=== PATIENT | male | born 1955 | race Caucasian/White ===

== ENCOUNTER → 2023-12-07 | Outpatient (BNVA) | payer MEDICARE, BC, SELFPAY | END | disposition home or self-care (01) | PROVIDERS: PCP Family Medicine; Referring Provider Family Medicine; Visit Provider Urology | DX: N40.1 Benign prostatic hyperplasia with lower urinary tract symptoms (principal); N13.8 Other obstructive and reflux uropathy | CPT/HCPCS: 76872; 81003 ==

== ENCOUNTER → 2024-07-09 | Outpatient (CLI) | payer MEDICARE, BC, SELFPAY ==
--- NOTE | 2024-07-09 | XR_ITS ---
Examination:Right hip AP, lateral, AP pelvis 3 views Technique: Hip AP lateral, AP pelvis, 3 views Exam date and time:July 09, 2024 0908 hours INDICATIONS: Right hip pain beginning 18 months ago FINDINGS: Total right hip arthroplasty. No prosthetic hip dislocation or loosening of the prosthetic components Advanced left hip osteoarthritis Bones of the pelvis intact IMPRESSION: Total right hip arthroplasty with satisfactory alignment.
[2024-07-09 10:04] LABS: C-Reactive Protein 1.3 mg/dL (0.0-0.9)
[2024-07-09 13:03] LABS: Sed Rate (ESR) 16 mm/hr (0-20)
== END | disposition home or self-care (01) ==
LOC: CDIM 07:46 → COPL 08:40
PROVIDERS: PCP Family Medicine; Referring Provider Orthopaedic Surgery Adult Reconstructive Orthopaedic Surgery; Visit Provider Radiology Diagnostic Radiology
DX: Z96.641 Presence of right artificial hip joint (principal)
CPT/HCPCS: 36415; 73502; 85652; 86140

== ENCOUNTER → 2024-07-14 | Outpatient (CLI) | payer MEDICARE, BC, SELFPAY ==
--- NOTE | 2024-07-14 | XR_ITS ---
Examination: CT right lower extremity without intravenous contrast, 2-D sagittal reconstructions. 2-D coronal reconstructions. 3-D reconstructions. Date and time of exam:#9 4 1637 hrs. Indications: Right hip pain for years, continues after surgery 4 years ago CTDI: vol (mGy):13.1 DLP: (mGycm):998 Technique: Multiple 1.25 mm axial sections of the right lower extremity without intravenous contrast have been obtained. 2-D sagittal and coronal reconstructions have been obtained. 3-D reconstructions have been obtained. Low dose protocols were performed. One or more of the following dose reduction techniques were used; automated exposure control, adjustment of the mA and/or KV according to patient size, use of iterative reconstruction technique. Findings: Total right hip arthroplasty Satisfactory alignment No prosthetic hip dislocation No fracture There is mild radiolucency, 2 mm involving the posterior medial prosthetic acetabular cup Advanced left hip joint narrowing Moderate narrowing medial lateral and patellofemoral joints right knee Subluxation, chronic patella at least 14 mm Total left knee arthroplasty with satisfactory alignment Impression: Total right hip arthroplasty with satisfactory alignment There is mild radiolucency, 2 mm between the prosthetic acetabular cup in the acetabulum Consider 3 phase radioisotope bone scan to assess for prosthetic right hip loosening as clinically warranted Moderate tricompartment narrowing right knee joint
== END | disposition home or self-care (01) ==
LOC: CCTX 16:06
PROVIDERS: PCP Orthopaedic Surgery Adult Reconstructive Orthopaedic Surgery; Referring Provider Orthopaedic Surgery Adult Reconstructive Orthopaedic Surgery; Visit Provider Orthopaedic Surgery Adult Reconstructive Orthopaedic Surgery
DX: M25.861 Other specified joint disorders, right knee (principal); M25.551 Pain in right hip; Z96.641 Presence of right artificial hip joint
CPT/HCPCS: 73700

== ENCOUNTER → 2024-07-15 | Outpatient (CLI) | payer MEDICARE, BC, SELFPAY ==
[2024-07-15 10:39] LABS: Prostate Specific Antigen 1.08 ng/mL (0-4.00)
[2024-07-15 10:58] LABS: Alanine Aminotransferase 9 U/L (10-49); Albumin, Serum 3.8 gm/dL (3.4-4.8); Albumin/Globulin Ratio 1.7 (1.2-2.2); Alkaline Phosphatase 119 U/L (46-116); Anion Gap 8 (7-16); Aspartate Amino Transferase 13 U/L (0-34); BUN/Creatinine Ratio 17 Ratio (12-20); Bilirubin,Total 0.5 mg/dL (0.3-1.2); Blood Urea Nitrogen 17 mg/dL (9-23); Calcium 8.8 mg/dL (8.3-10.6); Carbon Dioxide 28.4 mMol/L (20.0-31.0); Chloride 104 mMol/L (98-107); Globulin 2.3 gm/dL (2.3-3.5); Glucose 88 mg/dL (74-106); Osmolality,Calculated 279 (275-295); Potassium 3.7 mMol/L (3.4-5.1); Sodium 140 mMol/L (136-145); Total Protein 6.1 gm/dL (5.7-8.2); eGFR > 60 See Note
== END | disposition home or self-care (01) ==
LOC: COPL 09:08
PROVIDERS: PCP Family Medicine; Referring Provider Urology; Visit Provider Urology
DX: N40.1 Benign prostatic hyperplasia with lower urinary tract symptoms (principal)
CPT/HCPCS: 36415; 80053; 84153

== ENCOUNTER → 2024-07-21 | Outpatient (BNVA) | payer MEDICARE, BC, SELFPAY | END | disposition home or self-care (01) | PROVIDERS: PCP Family Medicine; Referring Provider Family Medicine; Visit Provider Urology | DX: N40.1 Benign prostatic hyperplasia with lower urinary tract symptoms (principal); N13.8 Other obstructive and reflux uropathy; R31.0 Gross hematuria; I10 Essential (primary) hypertension; I25.10 Atherosclerotic heart disease of native coronary artery without angina pectoris; E78.00 Pure hypercholesterolemia, unspecified | CPT/HCPCS: 81003; 99211; G0463 ==

== ENCOUNTER 2024-08-05 09:33 | Outpatient (AMB) | payer MEDICARE, BC, SELFPAY ==
[2024-08-05 10:41] VITALS: BP 123/77; PULSE 64; RESP 19; TEMP 36; O2SAT 97; BMI 29.7
--- NOTE | 2024-08-05 10:41 | PD.ORTHCLVIS ---
Vital signs 08/05/24 10:41 Height 1.88 m Height Method Stated Weight 105.318 kg Weight Measurement Method Standing Scale BMI 29.7 BP 123/77 Blood Pressure Source Automatic Cuff Blood Pressure Location Left Upper Arm Position Sitting Respiration 19 Pulse 64 Pulse Source Monitor Temp 96.8 F Temp Source Temporal Artery Scan Pulse Oximetry (%) 97 Oxygen Delivery Method Room Air Med/Allergies Allergies & Medications Allergies aspirin Allergy (Severe, Verified 08/05/24 10:42) swelling Medication Reconciliation atorvastatin 40 mg tablet (Lipitor) 40 mg PO HS High Cholesterol #0 tabs 11/14/15 [History Confirmed 08/05/24] propafenone 225 mg capsule,extended release 12 hr (Rythmol SR) 225 mg PO Q12HR Heart #0 caps 11/14/15 [History Confirmed 08/05/24] ramipril 5 mg capsule (Altace) 5 mg PO QDAY High Blood Pressure #0 caps 11/14/15 [History Confirmed 08/05/24] rivaroxaban 15 mg tablet (Xarelto) 15 mg PO QDAY Blood Thinner #0 tabs 11/14/15 [History Confirmed 08/05/24] tamsulosin 0.4 mg capsule (Flomax) 0.4 mg PO HS Prostate ##0 11/14/15 [History Confirmed 08/05/24] allopurinol 300 mg tablet 300 mg PO QDAY 09/05/21 [History Confirmed 08/05/24] meloxicam 7.5 mg tablet 7.5 mg PO QDAY PRN Pain 09/05/21 [History Confirmed 08/05/24] carvedilol 6.25 mg tablet 6.25 mg PO BID 10/27/22 [History Confirmed 08/05/24] cilostazol 50 mg tablet 50 mg PO BID 10/27/22 [History Confirmed 08/05/24] hydrochlorothiazide 12.5 mg tablet 12.5 mg PO BID 10/27/22 [History Confirmed 08/05/24] cephalexin 500 mg capsule 500 mg PO TID 08/13/23 [History Confirmed 08/05/24] Exam Exam Patient is in no acute distress and is cooperative with the examination today. Breathing is nonlabored. In no respiratory distress. Patient has no paraspinal tenderness. Spinal deformity [cannot] be appreciated. The gait of the patient is [nonantalgic] Bilateral extremities were evaluated and demonstrates sensation intact to light touch. Palpable pedal pulses are present. No significant edema is present. Bilateral knees were examined and the patient has full strength and range of motion.. The left hip was examined. Patient was able to flex to 90 degrees, adduct to 30 degrees, abduct to 40 degrees, internally rotate to 20 degrees, and externally rotate to 20 degrees. Patient has a negative logroll. Stinchfield is negative. The patient is nontender diffusely to touch. The right hip was examined. Patient was able to flex to [90] degrees, adduct to [30] degrees, abduct to [40] degrees, internally rotate to [20] degrees, and externally rotate to [20] degrees. Patient has a negative logroll. His Stinchfield is positive. Right hip x-rays from [facility] reviewed. Demonstrates a cementless right total hip replacement good alignment position. There is a radiolucent line in zones 1 and 2. There is no gross loosening of The component Assessment and Plan Problem List (1) Status post total hip replacement, right: Status: Acute Plan: Patient is a 69-year-old male status post right total hip replacement. He does have a slight radiolucency around his cup. It does not look grossly loose as I see no migration or subsidence. The patient has a radiolucency in zone [address] scan. I am not sure if this is always there but it looks relatively stable since 2021. I discussed with the patient that I would recommend going back to [facility] as they do a lot of revisions and they have his initial x-rays. I am curious to see if the lucency has progressed Plan I recommend that the patient go to [facility] for second opinion as they did his initial surgery and have his original x-rays Advanced Care Planning Discussion Advance care planning discussed with:: patient Office Procedures GNS Level of Care Nursing/Assessment Patient Status: Established Patient Nursing Assessment/Reassesment: Medication Reconciliation, Update PMH in EMR and Vital Signs Coordination of Care: Complex Care and Chronic Disease 1-5, Education Complex Pt/Fam, Consent,records obtained, informed consent, 1 Ins Authorization, Results/Orders obtained and Staff clarify orders Established Patient Charge Established Patient Point Assignment: 110 Established Patient Point Charge: EP Level 3 (80-115) MA Intake Visit Data Collection New Patient or Established: Established Patient (seen at [facility] within 3 years) Reason for Visit:: CT RESULTS Seen by Clinical Staff ONLY (RN/MA): No Draw In Hand Required: No PCP or OBGYN visit in last 3 months: Yes Hx Now: No Do You Feel Safe at Home: Yes Authorities Contacted: N/A Questionairres Past Medical History Past Medical History Have you ever been diagnosed with any of the following: Neurological Problems Seizures: No Cardiology Problems Myocardial Infarction: Yes Angina: Yes Coronary Artery Disease: Yes Atherosclerotic Heart Disease: Yes Hypercholesterolemia: Yes Congestive Heart Failure: No Edema: Yes (Dependent edema) Hypertension: Yes Respiratory Problems Chronic Obstructive Pulmonary Disease (COPD): No Smoking: No Smoking Exposure: No Stomache/Intestinal Problems Diverticulosis: Yes Genital/Urinary Problems Renal Disease: No Benign Prostatic Hyperplasia: Yes Musculoskeletal Problems Arthritis: Yes Endocrine Problems Diabetes Mellitus Type 1: No Diabetes Mellitus Type 2: No Blood Problems Anemia: Yes Other Problems Hospitalization: No Falls: No Blood Transfusions: No Anesthesia Reactions: No Subjective Visit Visit for: follow up visit and CT (RESULTS) Immunization / Flu Flu Vaccine in the Last 12 Months: No Flu Vaccine Exclusion Criteria: No Exclusion Criteria History of Present Illness Chief complaint: Right hip pain Ilana is a pleasant 69-year-old male with a prior right total hip replacement done at [facility] with Dr. Do. He is has persistent right hip pain for the last 2 years. He is using a cane because of the pain. He has a lot of pain in his groin. He had a back workup which was relatively unimpressive. Pain Pain level (0-10): 6 Pain duration: ALL DAY Pain location: inside (medial) Pain quality: sharp, dull and aching Pain timing: night, increases with activity and stairs Associated signs & symptoms: weakness and stiffness Ambulatory data Ambulatory device: cane Treatments Improvement with previous injections: No Improvement with PT: No Improvement with NSAIDS: no Review of Systems Review of Systems: All systems negative unless otherwise noted in HPI.
== END 2024-08-05 11:04 | disposition home or self-care (01) ==
LOC: HODSRG 09:33
PROVIDERS: PCP Family Medicine; Referring Provider Family Medicine; Supervising Provider Orthopaedic Surgery Adult Reconstructive Orthopaedic Surgery; Visit Provider Orthopaedic Surgery Adult Reconstructive Orthopaedic Surgery
DX: Z96.641 Presence of right artificial hip joint (principal); M25.551 Pain in right hip; I10 Essential (primary) hypertension; E78.00 Pure hypercholesterolemia, unspecified; I25.2 Old myocardial infarction
CPT/HCPCS: 99213; G0463

== ENCOUNTER → 2024-08-11 | Outpatient (CLI) | payer MEDICARE, SELFPAY ==
--- NOTE | 2024-08-11 12:00 | XR_ITS ---
Examination: CT abdomen, without intravenous contrast. CT pelvis, without intravenous contrast. CT abdomen, with intravenous contrast. CT pelvis, with intravenous contrast. 2-D sagittal coronal reconstructions. Date and time of exam:August 11, 2024 1318 hours Comparison July 04, 2023 INDICATIONS: Hematuria episodes 1 year CTDI: vol (mGy) 28.5 DLP: (mGycm) 1328 Technique: Multiple 3.0 axial images of the abdomen and pelvis without intravenous contrast, 3.0 mm slice thickness. Multiple 3.0 postcontrast images abdomen and pelvis also obtained, post intravenous injection 60 cc [id number] 2-D sagittal and coronal reconstructions. Low dose protocols were performed. One or more of the following dose reduction techniques were used; automated exposure control, adjustment of the mA and/or KV according to patient size, use of iterative reconstruction technique. Findings: 6 mm anterior pericardial effusion No focal liver or splenic lesions No gallstones No pancreatic or adrenal mass No renal or ureteral calculi, no hydronephrosis Aortic calcification no aneurysmal dilatation No bowel obstruction Small posterior bladder diverticulum 15 mm Urinary bladder wall thickening up to 7 mm Radiation seeds in the prostate, transverse prostate dimension Prominent osteopenia IMPRESSION: No renal or ureteral calculi, no hydronephrosis Urinary bladder wall thickening up to 7 mm, clinical correlation advised, differential would include cystitis
== END | disposition home or self-care (01) ==
PROVIDERS: Referring Provider Urology; Visit Provider Urology
DX: N32.89 Other specified disorders of bladder (principal)
CPT/HCPCS: 74178; A4649; Q9967

== ENCOUNTER → 2024-09-29 | Outpatient (BNVA) | payer MEDICARE, BC, SELFPAY | END | disposition home or self-care (01) | PROVIDERS: PCP Family Medicine; Referring Provider Family Medicine; Visit Provider Urology | DX: N32.89 Other specified disorders of bladder (principal); N32.3 Diverticulum of bladder; N40.1 Benign prostatic hyperplasia with lower urinary tract symptoms; N13.8 Other obstructive and reflux uropathy; Z96.0 Presence of urogenital implants; I10 Essential (primary) hypertension; E78.00 Pure hypercholesterolemia, unspecified; I25.10 Atherosclerotic heart disease of native coronary artery without angina pectoris; I25.2 Old myocardial infarction | CPT/HCPCS: 52234; 81003; A4217; A4649; C1894; J1580; A9270 ==

== ENCOUNTER 2024-10-15 09:55 | Day surgery (SDC) | payer MEDICARE, BC, SELFPAY ==
--- NOTE | 2024-10-14 10:20 | EKG_ITS ---
[facility] Test Date: 2024-10-14 Pat Name: KIMBERLEE FLORES Department: Room: - Gender: Male [employer]: RTSJC : 1955 Requested By: Yasir Campos Order Number: [id number] Reading MD: Yasir Campos Measurements Intervals [place] Rate: 65 P: 3 DE: 126 QRS: -16 QRSD: 106 T: -5 QT: 401 QTc: 417 Interpretive Statements SINUS RHYTHM POSSIBLE ANTERIOR MYOCARDIAL INFARCTION , OF INDETERMINATE AGE [30 ms Q WAVE IN V3/V4, OR R < 0.2 mV IN V4] No previous ECG available for comparison /store/S0/[id number].pdf
[2024-10-14 10:21] VITALS: BMI 29.9
[2024-10-14 11:37] LABS: Alanine Aminotransferase < 7 U/L (10-49); Albumin/Globulin Ratio 1.3 (1.2-2.2); Alkaline Phosphatase 95 U/L (46-116); Anion Gap 6 (7-16); Aspartate Amino Transferase 18 U/L (0-34); BUN/Creatinine Ratio 10 Ratio (12-20); Bilirubin,Total 0.6 mg/dL (0.3-1.2); Blood Urea Nitrogen 10 mg/dL (9-23); Calcium 9.2 mg/dL (8.3-10.6); Calcium (Corrected) 9.2 mg/dL (8.5-10.1); Carbon Dioxide 27.7 mMol/L (20.0-31.0); Chloride 107 mMol/L (98-107); Estimated Creatinine Clearance 90.3 mL/min (>60); Glucose 85 mg/dL (74-106); Osmolality,Calculated 279 (275-295); Potassium 3.9 mMol/L (3.4-5.1); Sodium 141 mMol/L (136-145); eGFR > 60 See Note
[2024-10-15] VITALS (9 sets, daily range): BP systolic 111–146; BP diastolic 65–85; PULSE 57–73; RESP 12–18; TEMP 36.6–36.8; O2SAT 97–100; BMI 30.2
--- NOTE | 2024-10-15 14:40 | PD.SUROPNT ---
Date of Procedure 10/15/24 Pre Op Diagnosis BPH with urinary obstruction and LUTS status post placement of UroLift, gross hematuria and multiple shallow diverticuli in the bladder and lesion in the diverticulum Post Op Diagnosis Same Procedure Cystoscopic examination biopsy of the lesion from the diverticulum and fulguration Findings Multiple shallow diverticuli course of bladder trabeculation lesion in the diverticulum right posterior lateral wall about 9 o'clock position Procedure Description Indication for procedure this is a 69-year-old gentleman this patient has BPH with urinary obstruction and LUTS he had placement of prostatic urethral lift. Patient has gross hematuria he is on Xarelto he had a CAT scan of the abdominal pelvis done this revealed no kidney mass no hydronephrosis he had large bladder diverticulum. Urine for cytology revealed atypical cells rule out bladder cancer he was recommended above procedure procedure and complications were discussed with the patient in great detail informed consent is obtained Indication for procedure this is a 69-year-old gentleman this patient has been on Xarelto he has history of intermittent gross hematuria. Patient had cystoscopic examination done in the office his prostatic urethra is wide open inside of the bladder revealed multiple shallow diverticuli there were 2 diverticulum with the widemouth patient was recommended above procedure to be done in the hospital under general anesthesia procedure and complications were discussed with the patient in great detail informed consent is obtained Patient was brought to the operating room in a satisfactory condition after appropriate premedication he was appropriately identified by the surgeon and operating room staff site scope and indications of the procedure were reconfirmed with the patient general anesthesia was given uneventfully the patient received 160gmGentamicin IM pre-op prophylaxis. Patient was positioned in a dorsal lithotomy position. The patient was prepped in a sterile manner. Local anesthetic was placed into the urethra. #20 Barron cystoscope was used to do the cystoscopy . The urethra had no intrinsic lesions up to the prostatic fossa. There was [bilobar/ prostatic enlargement it was not obstructive. Examination of the bladder revealed no evidence of cancerous lesions, papillary or polyp type lesions or stones. There was marked] trabeculation with cellules and diverticula there was a large diverticulum posterior lateral wall right side I was able to pass the scope into the diverticulum there was a lesion in in the diverticulum biopsy was obtained fulguration was carried out. Both ureters were putting out clear urine. He possibly has right ureterocele, the bladder was completely drained and the scope removed. #16 Polanco catheter was inserted balloon was inflated with 10 cc of water the patient tolerated the procedure well. Post-op instructions were given. The patient is to call the office should any problems occur. Anesthesia GETA Pathology / specimen Other (Bladder biopsy) Estimated Blood Loss 1.0 Condition Stable Disposition PACU Surgeon Pranav Juarez MD Surgical Staff Operation Date: 10/15/24 12:00 Case Staff SALES SYSTEMS ENGINEER: Ryder Miller
--- NOTE | 2024-10-15 14:42 | SUR.PHASEI ---
Addendum entered by Anisa Velásquez RN 10/15/24 14:59: Note should be timed for 1410, 1430, 1435 hrs. Original Note: 1400: Pt received in [facility] via gurney. Report from Brendon ALCARAZ and Eufemia EVANS. Pt groggy. Is responds to questions appropriately. Resp even, unlabored. VS stable. Polanco catheter [address] with clear drainage (bladder irrigation). Acetaminaphen infusing. Pt deneis pain. 1420: Dr. Juarez in to talk with pt. 1425: Pt has been resting with no complaints voiced. VS stable. Denies pain. Polanco continues to drain clear drainage.
--- NOTE | 2024-10-15 16:15 | SUR.PHASEII ---
1500: Pt more awake, alert. VS stable. Denies pain. Polanco draining pale yellow urine. Pt sitting up tolerating po fluids with no difficulty swallowing and no n/v. 1530: Polanco leg bag applied per Dr. Juarez. Visual instruction given. Pt stated understanding of dc procedure to be done at home tomorrow afternoon. 1538: Pt fully awake, oriented x3. Pt dressed. Assisted to transport chair. Ambulation steady. Pt and grandson stated understanding of discharge instructions. Pt also instructed to coal picker his prescription at [facility]. Pt discharged from [facility] in stable condition.
== END 2024-10-15 15:38 | disposition home or self-care (01) ==
PROVIDERS: Anesthesiology; PCP Family Medicine; Referring Provider Urology; Visit Provider Urology
PROC: 0TJ98ZZ Inspection of Ureter, Via Natural or Artificial Opening Endoscopic (ICD-10-PCS; CPT 52351; principal; 2024-10-15 11:45)
DX: N30.01 Acute cystitis with hematuria (principal); N13.8 Other obstructive and reflux uropathy; N32.89 Other specified disorders of bladder; N40.1 Benign prostatic hyperplasia with lower urinary tract symptoms; Z01.810 Encounter for preprocedural cardiovascular examination
CPT/HCPCS: 52224; 36415; 80053; 93005; A4217; A4649; C1894; J0131; J1100; J1580; J2371; J2405; J2704; J3010; J3490

== ENCOUNTER → 2025-01-30 | Outpatient (BNVA) | payer MEDICARE, BC, SELFPAY | END | disposition home or self-care (01) | PROVIDERS: PCP Family Medicine; Referring Provider Family Medicine; Visit Provider Urology | DX: N40.1 Benign prostatic hyperplasia with lower urinary tract symptoms (principal); N13.8 Other obstructive and reflux uropathy; N32.3 Diverticulum of bladder; I10 Essential (primary) hypertension; I25.10 Atherosclerotic heart disease of native coronary artery without angina pectoris; E78.00 Pure hypercholesterolemia, unspecified | CPT/HCPCS: 81003; 99212; G0463 ==

== ENCOUNTER → 2025-03-16 | Outpatient (CLI) | payer MEDICARE, BC, SELFPAY ==
--- NOTE | 2025-03-16 | XR_ITS ---
Examination: Shoulder,right, 3 views Technique: Shoulder AP internal rotation, AP external rotation, Y view shoulder, 3 views Exam date and time :March 16, 2025 0730 hours INDICATIONS: Right shoulder pain beginning several years ago. FINDINGS: Significant osteopenia. Advanced osteoarthritis glenohumeral joint No fracture or shoulder dislocation IMPRESSION: Advanced osteoarthritis glenohumeral joint
--- NOTE | 2025-03-16 | XR_ITS ---
Examination: AP pelvis single view Technique one AP supine portable pelvis single view FINDINGS: Total right hip arthroplasty. Satisfactory alignment. Prominent osteopenia. Advanced left hip osteoarthritis. No hip or pelvic fracture IMPRESSION: Advanced left hip osteoarthritis
== END | disposition home or self-care (01) ==
PROVIDERS: Referring Provider Orthopaedic Surgery; Visit Provider Orthopaedic Surgery
DX: M19.011 Primary osteoarthritis, right shoulder (principal); M16.12 Unilateral primary osteoarthritis, left hip
CPT/HCPCS: 72170; 73030

== ENCOUNTER → 2025-03-30 | Outpatient (CLI) | payer MEDICARE, BC, SELFPAY ==
--- NOTE | 2025-03-30 13:00 | XR_ITS ---
Examination: Steroid injection left hip with imaging guidance Fluoroscopy . Exam date and time: 825.5, 2:29 PM Informed consent provided. Fluoroscopy time: 0.7 minutes Dose: 1 1.17 mGy Technique: A timeout was completed verifying correct patient, procedure, site, positioning. The patient was placed in supine position appropriate for the steroid injection The patient's site was prepped and draped in sterile fashion 5 cc 1% lidocaine administered locally for anesthesia. Sterile drape applied, maximum barrier sterile technique. Utilizing fluoroscopic guidance, 23-gauge needle placed in the left hip joint 1 cc Triamcinalone in 5 cc 0.25% Marcaine introduced into the left hip joint The patient was in satisfactory and stable condition on completion of the procedure Attending radiologist was present for the entire procedure Estimated blood loss 0 cc. Impression: Successful left hip steroid injection with imaging guidance
== END | disposition home or self-care (01) ==
LOC: SIRX 04-02 06:49
PROVIDERS: PCP Family Medicine; Referring Provider Orthopaedic Surgery; Visit Provider Orthopaedic Surgery
DX: M16.12 Unilateral primary osteoarthritis, left hip (principal)
CPT/HCPCS: 20610; 77002

== ENCOUNTER → 2025-06-29 | Outpatient (CLI) | payer MEDICARE, BC, SELFPAY ==
[2025-06-29 08:58] LABS: Sed Rate (ESR) 3 mm/hr (0-20)
[2025-06-29 09:01] LABS: C-Reactive Protein < 0.5 mg/dL (0.0-0.9); Prostate Specific Antigen 0.91 ng/mL (0-4.00)
== END | disposition home or self-care (01) ==
PROVIDERS: PCP Family Medicine; Referring Provider Urology; Visit Provider Internal Medicine
DX: N40.1 Benign prostatic hyperplasia with lower urinary tract symptoms (principal); Z79.2 Long term (current) use of antibiotics
CPT/HCPCS: 36415; 84153; 85652; 86140

== ENCOUNTER → 2025-07-27 | Outpatient (BNVA) | payer MEDICARE, BC, SELFPAY | END | disposition home or self-care (01) | PROVIDERS: PCP Family Medicine; Referring Provider Family Medicine; Visit Provider Urology | DX: R31.9 Hematuria, unspecified (principal); N40.1 Benign prostatic hyperplasia with lower urinary tract symptoms; N13.8 Other obstructive and reflux uropathy; N32.3 Diverticulum of bladder | CPT/HCPCS: 81003; 99212; G0463 ==